=== PATIENT | female | born 1960 | race Caucasian/White ===

== ENCOUNTER → 2024-06-13 11:23 | Outpatient (REF) | payer BC, SELFPAY | LOC: HWWDC 11:23 | PROVIDERS: ATTENDING PHYSICIAN Family Medicine | DX: Z12.31 Encounter for screening mammogram for malignant neoplasm of breast (principal) | CPT/HCPCS: 77063; 77067 ==

== ENCOUNTER → 2025-06-17 11:11 | Outpatient (REF) | payer BC, SELFPAY | LOC: HWWDC 11:11 | PROVIDERS: ATTENDING PHYSICIAN Family Medicine; REFERRING PHYSICIAN Nurse Practitioner Adult Health | DX: Z12.31 Encounter for screening mammogram for malignant neoplasm of breast (principal) | CPT/HCPCS: 77063; 77067 ==